=== PATIENT | female | born 1945 | race Caucasian/White ===

== ENCOUNTER 2024-05-19 09:55 | Inpatient (IN) | payer OTHER, MEDICAID ==
[~2024-05-19] VITALS: Ht 175.3 cm; Wt 86.6 kg
[~2024-05-19 09:55] MED LIST: FURO40TA5 PO; LISI20TA30 PO; POTA-197 PO; SIMV-43 PO; TRAM50TA2 PO
[2024-05-19 10:04] VITALS: BP_SYST 104; PULSE 93; RESP 17; TEMP 97.6; O2SAT 97
[2024-05-19] MEDS: NACL 0.9% 1,000 ML IV ONE (10:39)
[2024-05-19 10:50] LABS: BASOPHILS % (AUTO) 0.4 % (0.0-2.0); EOSINOPHILS % (AUTO) 0.1 % (0.0-4.0); HEMATOCRIT 35.3 % (36-48); HEMOGLOBIN 11.8 g/dL (12.0-16.0); LYMPHOCYTES # (AUTO) 1.1 K/uL (1.0-5.5); LYMPHOCYTES % (AUTO) 11.4 % (20.5-51.5); MEAN CORPUSCULAR HEMOGLOBIN 28 pg (27-31); MEAN CORPUSCULAR HGB CONC 33 % (32-36); MEAN CORPUSCULAR VOLUME 84 fL (79.0-98.0); MONOCYTES # (AUTO) 0.9 K/uL (0.0-1.0); MONOCYTES % (AUTO) 9.9 % (1.7-9.3); NEUTROPHILS # (AUTO) 7.4 K/uL (1.8-7.7); NEUTROPHILS % (AUTO) 78.2 % (40.0-70.0); PLATELET COUNT (AUTO) 313 K/uL (130-430); RED CELL DISTRIBUTION WIDTH 17.4 % (9.0-15.0); WHITE BLOOD COUNT (AUTO) 9.4 K/uL (4.8-10.8)
[2024-05-19 11:04] LABS: ALANINE AMINOTRANSFERASE 13 U/L (12-78); ALBUMIN 2.7 g/dL (3.4-4.8); ANION GAP 9 (5-15); ASPARTATE AMINOTRANSFERASE 8 U/L (10-37); CALCIUM 9.5 mg/dL (8.4-11.0); CARBON DIOXIDE 29 mmol/L (23-29); CHLORIDE 99 mmol/L (98-107); GLUCOSE 145 mg/dL (74-106); POTASSIUM 4.3 mmol/L (3.5-5.1); SODIUM SERUM 137 mmol/L (136-145); TOTAL BILIRUBIN 0.9 mg/dL (0.0-1.0); TOTAL PROTEIN, SERUM 7.5 g/dL (6.4-8.3); UREA NITROGEN, BLOOD 16 mg/dL (8-21)
[2024-05-19 11:07] LABS: LIPASE 17 U/L (16-77)
[2024-05-19] MEDS: ASPIRIN 81 MG TAB.CHEW PO ONE (11:50)
[2024-05-19] MEDS ORDERED: DULO60CA42 PO (13:29)
[2024-05-19] MEDS ORDERED: ASPI-1155 PO (13:29)
[2024-05-19] MEDS ORDERED: FOLI-43 PO (13:29)
[2024-05-19] MEDS ORDERED: VITD2000 PO (13:29)
[2024-05-19] MEDS ORDERED: LOSA-412 PO (13:29)
[2024-05-19] MEDS ORDERED: FURO-149 PO (13:29)
[2024-05-19] MEDS ORDERED: APIX5TAB PO (13:29)
[2024-05-19] MEDS ORDERED: LISI20TA30 PO (13:29)
[2024-05-19] MEDS ORDERED: FERR324T22 PO (13:29)
[2024-05-19] MEDS ORDERED: SEMA0.258 SUBCUT (13:29)
[2024-05-19] MEDS ORDERED: SILD20TA PO (13:29)
[2024-05-19] MEDS ORDERED: OMEP40CA20 PO (13:29)
[2024-05-19] MEDS ORDERED: BACL10TA PO (13:29)
[2024-05-19] MEDS ORDERED: CRAN450T9 PO (13:29)
[2024-05-19] MEDS ORDERED: SIMV-343 PO (13:29)
[2024-05-19] MEDS ORDERED: COR3.125 PO (13:29)
[2024-05-19] MEDS ORDERED: LOSA100T24 PO (13:55)
[2024-05-19] MEDS: FUROSEMIDE 20 MG/2 ML VIAL IVP ONE (14:01)
[2024-05-19] MEDS: PANTOPRAZOLE SODIUM 40 MG/VIAL (PROTONIX) IVP ONE (14:01)
[2024-05-19 14:22] VITALS: BP_SYST 117; PULSE 88; O2SAT 98
[2024-05-19] MEDS ORDERED: SILDENAFIL CITRATE 20 MG TABLET PO SCH (15:00)
[2024-05-19] MEDS: traMADol HCL HCL 50 MG TABLET (ULTRAM) PO SCH (15:13)
[2024-05-19 15:20] LABS: BILIRUBIN,URINE NEGATIVE (NEGATIVE); BLOOD, URINE NEGATIVE (NEGATIVE); COLOR,URINE YELLOW (YELLOW); GLUCOSE,URINE NEGATIVE (NEGATIVE); KETONES,URINE NEGATIVE (NEGATIVE); LEUKOCYTE ESTERASE ,URINE NEGATIVE (NEGATIVE); NITRITE, URINE NEGATIVE (NEGATIVE); PH,URINE 5.5 (5.0-8.0); PROTEIN URINE NEGATIVE (NEGATIVE)
[2024-05-19 15:47] VITALS: O2SAT 97
[2024-05-19] MEDS: levalbuterol HCL 0.63 MG/3 ML VIAL.NEB INH SCH (15:47)
[2024-05-19 16:00] VITALS: BP_SYST 107; PULSE 107; RESP 14; TEMP 98; O2SAT 97
[2024-05-19 16:23] LABS: CLARITY/URINE SLIGHTLY HAZY (CLEAR)
[2024-05-19] MEDS: FUROSEMIDE 20 MG/2 ML VIAL IVP SCH (20:43)
[2024-05-19] MEDS: CARVEDILOL 3.125 MG TABLET (COREG) PO SCH (20:46)
[2024-05-19] MEDS: APIXABAN 2.5 MG TABLET PO SCH (20:47)
[2024-05-19 21:00] VITALS: BP_SYST 119; PULSE 96; RESP 20; TEMP 97.6; O2SAT 95
[2024-05-20] VITALS (10 sets, daily range): BP systolic 99–135; PULSE 63–96; RESP 14–20; TEMP 97.1–98.3; O2SAT 95–99
[2024-05-20 05:16] LABS: BASOPHILS % (AUTO) 0.3 % (0.0-2.0); EOSINOPHILS % (AUTO) 0.1 % (0.0-4.0); HEMATOCRIT 32.3 % (36-48); HEMOGLOBIN 10.6 g/dL (12.0-16.0); LYMPHOCYTES # (AUTO) 1.5 K/uL (1.0-5.5); LYMPHOCYTES % (AUTO) 11.4 % (20.5-51.5); MEAN CORPUSCULAR HEMOGLOBIN 27 pg (27-31); MEAN CORPUSCULAR HGB CONC 33 % (32-36); MEAN CORPUSCULAR VOLUME 84 fL (79.0-98.0); MONOCYTES # (AUTO) 1.5 K/uL (0.0-1.0); MONOCYTES % (AUTO) 11.6 % (1.7-9.3); NEUTROPHILS % (AUTO) 76.6 % (40.0-70.0); PLATELET COUNT (AUTO) 286 K/uL (130-430); RED BLOOD CELL COUNT(AUTO) 3.86 MIL/uL (4.2-6.2); RED CELL DISTRIBUTION WIDTH 17.7 % (9.0-15.0); WHITE BLOOD COUNT (AUTO) 13.1 K/uL (4.8-10.8)
[2024-05-20 06:53] LABS: ALANINE AMINOTRANSFERASE 15 U/L (12-78); ALBUMIN 2.4 g/dL (3.4-4.8); ANION GAP 10 (5-15); ASPARTATE AMINOTRANSFERASE 15 U/L (10-37); CALCIUM 8.6 mg/dL (8.4-11.0); CARBON DIOXIDE 27 mmol/L (23-29); CHLORIDE 97 mmol/L (98-107); CHOLESTEROL 178 mg/dL (<200); CREATININE 1.26 mg/dL (0.55-1.30); FREE T4 (FREE THYROXINE) 1.3 ng/dL (0.6-1.6); GLUCOSE 113 mg/dL (74-106); HDL CHOLESTEROL 37 mg/dL (>55); POTASSIUM 4.1 mmol/L (3.5-5.1); SODIUM SERUM 134 mmol/L (136-145); THYROID STIMULATING HORMONE 2.45 uIu/mL (0.34-4.82); TOTAL BILIRUBIN 0.8 mg/dL (0.0-1.0); TOTAL PROTEIN, SERUM 6.7 g/dL (6.4-8.3); TRIGLYCERIDES 77 mg/dL (30-150); UREA NITROGEN, BLOOD 19 mg/dL (8-21)
[2024-05-20 08:35] LABS: INR 1.2 (0.8-1.2)
[2024-05-20] MEDS: FOLIC ACID 1 MG TABLET PO SCH (08:36)
[2024-05-20] MEDS: DULoxetine HCL 30 MG CAPSULE.DR (CYMBALTA) PO SCH (08:36)
[2024-05-20] MEDS: CHOLECALCIFEROL (VITAMIN D3) 2,000 UNIT TABLET PO SCH (08:36)
[2024-05-20] MEDS: POTASSIUM CHLORIDE 20 MEQ TABLET.ER PO SCH (08:36)
[2024-05-20] MEDS: ASPIRIN 81 MG TAB.CHEW PO SCH (08:36)
[2024-05-20] MEDS: SIMVASTATIN 20 MG TABLET PO SCH (08:36)
[2024-05-20] MEDS: FERROUS GLUCONATE 324 MG TABLET PO SCH (08:36)
[2024-05-20] MEDS: COLCHICINE 0.6 MG TABLET PO SCH (08:36)
[2024-05-20] MEDS: BACLOFEN 10 MG TABLET PO SCH (08:37)
[2024-05-20] MEDS: PANTOPRAZOLE SODIUM 40 MG TAB PO SCH (08:37)
[2024-05-21 01:00] VITALS: BP_SYST 119; PULSE 79; RESP 18; TEMP 98.3; O2SAT 96
[2024-05-21 04:54] LABS: BASOPHILS % (AUTO) 0.3 % (0.0-2.0); EOSINOPHILS % (AUTO) 0.1 % (0.0-4.0); HEMATOCRIT 30.3 % (36-48); HEMOGLOBIN 9.9 g/dL (12.0-16.0); LYMPHOCYTES # (AUTO) 1.2 K/uL (1.0-5.5); LYMPHOCYTES % (AUTO) 10.3 % (20.5-51.5); MEAN CORPUSCULAR HEMOGLOBIN 27 pg (27-31); MEAN CORPUSCULAR HGB CONC 33 % (32-36); MEAN CORPUSCULAR VOLUME 84 fL (79.0-98.0); MONOCYTES # (AUTO) 1.2 K/uL (0.0-1.0); MONOCYTES % (AUTO) 10.4 % (1.7-9.3); NEUTROPHILS # (AUTO) 8.8 K/uL (1.8-7.7); NEUTROPHILS % (AUTO) 78.9 % (40.0-70.0); PLATELET COUNT (AUTO) 278 K/uL (130-430); RED BLOOD CELL COUNT(AUTO) 3.63 MIL/uL (4.2-6.2); RED CELL DISTRIBUTION WIDTH 17.5 % (9.0-15.0); WHITE BLOOD COUNT (AUTO) 11.2 K/uL (4.8-10.8)
[2024-05-21 05:22] LABS: ALANINE AMINOTRANSFERASE 13 U/L (12-78); ALBUMIN 2.4 g/dL (3.4-4.8); ANION GAP 5 (5-15); ASPARTATE AMINOTRANSFERASE 10 U/L (10-37); CALCIUM 8.8 mg/dL (8.4-11.0); CARBON DIOXIDE 29 mmol/L (23-29); CHLORIDE 96 mmol/L (98-107); CREATININE 1.79 mg/dL (0.55-1.30); GLUCOSE 110 mg/dL (74-106); POTASSIUM 4.9 mmol/L (3.5-5.1); SODIUM SERUM 130 mmol/L (136-145); TOTAL BILIRUBIN 0.7 mg/dL (0.0-1.0); TOTAL PROTEIN, SERUM 6.8 g/dL (6.4-8.3); UREA NITROGEN, BLOOD 28 mg/dL (8-21)
[2024-05-21 05:53] LABS: CHOLESTEROL 170 mg/dL (<200); HDL CHOLESTEROL 24 mg/dL (>55); TRIGLYCERIDES 92 mg/dL (30-150)
[2024-05-21] MEDS: NACL 0.9% 1,000 ML IV SCH (07:30)
[2024-05-21 07:38] VITALS: O2SAT 97
[2024-05-21 08:00] VITALS: O2SAT 96
[2024-05-21] MEDS: MEPERIDINE 100 MG INJ. 100 MG/ML VIAL ONE ×2 (08:06→11:17)
[2024-05-21] MEDS: MIDAZOLAM HCL 5 MG/5 ML VIAL ONE (08:07)
[2024-05-21 11:20] VITALS: BP_SYST 108; PULSE 72; RESP 16; TEMP 98.2; O2SAT 100
[2024-05-21 16:12] VITALS: BP_SYST 109; PULSE 70; RESP 16; TEMP 98.4; O2SAT 100
[2024-05-21 20:00] VITALS: BP_SYST 101; BP_SYST 108; BP_SYST 112; BP_SYST 116; PULSE 75; PULSE 91; PULSE 95; RESP 18; TEMP 97.4; O2SAT 100
[2024-05-22] VITALS (10 sets, daily range): BP systolic 116–141; PULSE 72–75; RESP 16–18; TEMP 97.4–98.4; O2SAT 96–97
[2024-05-22 05:30] LABS: BASOPHILS % (AUTO) 0.3 % (0.0-2.0); EOSINOPHILS % (AUTO) 0.1 % (0.0-4.0); HEMATOCRIT 29.2 % (36-48); HEMOGLOBIN 9.6 g/dL (12.0-16.0); LYMPHOCYTES # (AUTO) 1.2 K/uL (1.0-5.5); LYMPHOCYTES % (AUTO) 12.9 % (20.5-51.5); MEAN CORPUSCULAR HEMOGLOBIN 28 pg (27-31); MEAN CORPUSCULAR HGB CONC 33 % (32-36); MEAN CORPUSCULAR VOLUME 84 fL (79.0-98.0); MONOCYTES % (AUTO) 10.6 % (1.7-9.3); NEUTROPHILS # (AUTO) 7.1 K/uL (1.8-7.7); NEUTROPHILS % (AUTO) 76.1 % (40.0-70.0); PLATELET COUNT (AUTO) 267 K/uL (130-430); RED BLOOD CELL COUNT(AUTO) 3.47 MIL/uL (4.2-6.2); RED CELL DISTRIBUTION WIDTH 17.5 % (9.0-15.0); WHITE BLOOD COUNT (AUTO) 9.3 K/uL (4.8-10.8)
[2024-05-22 05:58] LABS: ALANINE AMINOTRANSFERASE 14 U/L (12-78); ALBUMIN 2.2 g/dL (3.4-4.8); ANION GAP 6 (5-15); ASPARTATE AMINOTRANSFERASE 10 U/L (10-37); CALCIUM 8.5 mg/dL (8.4-11.0); CARBON DIOXIDE 29 mmol/L (23-29); CHLORIDE 98 mmol/L (98-107); CREATININE 1.21 mg/dL (0.55-1.30); GLUCOSE 105 mg/dL (74-106); POTASSIUM 4.2 mmol/L (3.5-5.1); SODIUM SERUM 133 mmol/L (136-145); TOTAL BILIRUBIN 0.7 mg/dL (0.0-1.0); TOTAL PROTEIN, SERUM 6.4 g/dL (6.4-8.3); UREA NITROGEN, BLOOD 27 mg/dL (8-21)
[2024-05-22 08:06] LABS: CEA 1.9 ng/mL (0.0-4.7)
[2024-05-22] MEDS: CARVEDILOL 12.5 MG TABLET (COREG) PO ONE (09:52)
[2024-05-22] MEDS ORDERED: COR12.5 PO (18:52)
[2024-05-22] MEDS ORDERED: COLC0.6T67 PO (18:52)
[2024-05-22] MEDS: CARVEDILOL 12.5 MG TABLET (COREG) PO SCH (22:22)
[2024-05-23 00:17] VITALS: BP_SYST 138; PULSE 68; RESP 16; TEMP 97.8; O2SAT 98
[2024-05-23 01:30] VITALS: O2SAT 97
[2024-05-23 07:55] VITALS: BP_SYST 126; PULSE 65; RESP 15; TEMP 97.9; O2SAT 99
[2024-05-23 07:57] VITALS: O2SAT 97
[2024-05-23 08:45] VITALS: O2SAT 99
[2024-05-23 09:57] VITALS: BP_SYST 126; PULSE 65; RESP 15; TEMP 97.9; O2SAT 99
== END 2024-05-23 10:56 | disposition home health service (06) | DRG 314 ==
LOC: SED 09:55 → STU 13:10
PROVIDERS: ADMIT Internal Medicine; ATTEND Internal Medicine
PROC: 0DB78ZX Excision of Stomach, Pylorus, Via Natural or Artificial Opening Endoscopic, Diagnostic (ICD-10-PCS; principal; 2024-05-21 14:45)
DX: I30.9 Acute pericarditis, unspecified (principal); E43 Unspecified severe protein-calorie malnutrition; I50.43 Acute on chronic combined systolic (congestive) and diastolic (congestive) heart failure; N17.0 Acute kidney failure with tubular necrosis; J90 Pleural effusion, not elsewhere classified; I48.20 Chronic atrial fibrillation, unspecified; I11.0 Hypertensive heart disease with heart failure; Z20.822 Contact with and (suspected) exposure to COVID-19; E11.9 Type 2 diabetes mellitus without complications; I48.0 Paroxysmal atrial fibrillation; I27.20 Pulmonary hypertension, unspecified; I25.10 Atherosclerotic heart disease of native coronary artery without angina pectoris; K25.9 Gastric ulcer, unspecified as acute or chronic, without hemorrhage or perforation; K29.70 Gastritis, unspecified, without bleeding; K74.60 Unspecified cirrhosis of liver; E78.5 Hyperlipidemia, unspecified; Z87.01 Personal history of pneumonia (recurrent); Z90.49 Acquired absence of other specified parts of digestive tract; Z79.82 Long term (current) use of aspirin; Z79.899 Other long term (current) drug therapy; Z68.28 Body mass index [BMI] 28.0-28.9, adult; Z79.01 Long term (current) use of anticoagulants
CPT/HCPCS: 36415; 43239; 71045; 71275; 76700; 80053; 80061; 81001; 81003; 82378; 83037; 83690; 83735; 83880; 84439; 84443; 84484; 85025; 85379; 85610; 85651; 86301; 87081; 88305; 88312; 88313; 92610-GN; 93005; 93306; 94070; 94640; 94760; 96374; 97110-GP; 97116-GP; 97530-GP; 99291; G0378; J1940; J2175; J2250; J2470; J7614